=== PATIENT | female | born 1990 | race Caucasian/White ===

== ENCOUNTER → 2019-11-17 14:04 | Outpatient (BNVA) | payer BC, SELFPAY | PROVIDERS: Visit Provider Nurse Practitioner Family | DX: J11.1 Influenza due to unidentified influenza virus with other respiratory manifestations (principal) | CPT/HCPCS: 87400 ==

== ENCOUNTER 2020-03-02 16:11 | Outpatient (CLI) | payer BC, SELFPAY ==
[2020-03-02 16:32] LABS: Basophils # 0.1 10^3/uL (0.0-0.1); Basophils % 0.9 %; Eosinophils # 0.3 10^3/uL (0.0-0.8); Eosinophils % 3.9 %; Hematocrit 40.9 % (37.0-47.0); Hemoglobin 13.7 g/dL (11.5-15.3); Lymphocytes # 1.7 10^3/uL (0.8-4.8); Lymphocytes % 25.3 %; Mean Corpuscular HGB Conc 33.5 g/dL (30.0-36.0); Mean Corpuscular Hemoglobin 32.2 pg (28.0-34.0); Mean Platelet Volume 11.8 fL (7.4-10.4); Monocytes # 0.4 10^3/uL (0.2-0.9); Monocytes % 6.5 %; Neutrophils # 4.15 10^3/uL (1.8-7.7); Neutrophils % 63.1 %; Nucleated Red Blood Cells % 0 %; Platelet Count 174 10^3/cmm (130-400); Red Blood Count 4.26 10^6/uL (4.1-5.3); Red Cell Distribution Width 12.7 % (12.1-15.1); White Blood Count 6.6 10^3/uL (4.0-10.0)
[2020-03-02 17:13] LABS: Anion Gap 13.4 (5-19); Blood Urea Nitrogen 15 mg/dL (6-20); Calcium 9.3 mg/dL (8.5-10.5); Carbon Dioxide 25 mmol/L (22-29); Chloride 105 mmol/L (98-107); Chol HDL Ratio 4.02 mg/dL (0.0-4.40); Cholesterol 209 mg/dL (0-200); Glomerular Filtration Rate 119.9 mL/min (90-130); Glucose 96 mg/dL (65-115); HDL Cholesterol 52 mg/dL (60-100); LDL Cholesterol Calculated 139 mg/dL (50-129); LDL HDL Ratio 2.67 RATIO (0.00-3.22); Osmolality Calculated 284 mOsm/kg (285-295); Potassium 4.4 mmol/L (3.5-5.1); Sodium 139 mmol/L (136-145); Thyroid Stimulating Hormone 1.06 uIU/mL (0.27-4.20); Triglycerides 90 mg/dL (0-150)
== END 2020-03-02 16:12 | disposition home or self-care (01) ==
LOC: LAB 16:15
PROVIDERS: PCP Nurse Practitioner Family; Visit Provider Nurse Practitioner Family
DX: R53.83 Other fatigue (principal); Z13.220 Encounter for screening for lipoid disorders
CPT/HCPCS: 36415; 80048; 80061; 84443; 85025

== ENCOUNTER 2020-03-31 11:02 | Outpatient (CLI) | payer BC, SELFPAY ==
--- NOTE | 2020-03-31 11:16 | XRR_ITS ---
PROCEDURE INFORMATION: Exam: XR Chest, 2 Views Exam date and time: 03/31/2020 11:16 AM Age: 30 years old Clinical indication: Cough TECHNIQUE: Imaging protocol: XR of the chest Views: 2 views. COMPARISON: No relevant prior studies available. FINDINGS: Lungs: Hyperinflation and mild interstitial prominence, without acute infiltrate. Pleural space: No pleural effusion. Heart/Mediastinum: No cardiomegaly. Bones/joints: Unremarkable. XR/XR chest 2V* [id number] IMPRESSION: Hyperinflation and mild interstitial prominence, without acute infiltrate.
[2020-03-31 12:04] LABS: Basophils # 0.1 10^3/uL (0.0-0.1); Basophils % 1.4 %; Eosinophils # 0.2 10^3/uL (0.0-0.8); Eosinophils % 4.2 %; Hematocrit 43.5 % (37.0-47.0); Hemoglobin 14.3 g/dL (11.5-15.3); Lymphocytes # 1.9 10^3/uL (0.8-4.8); Mean Corpuscular HGB Conc 32.9 g/dL (30.0-36.0); Mean Corpuscular Hemoglobin 31.5 pg (28.0-34.0); Mean Corpuscular Volume 95.8 fL (81-99); Mean Platelet Volume 12.3 fL (7.4-10.4); Monocytes # 0.4 10^3/uL (0.2-0.9); Monocytes % 7.7 %; Neutrophils # 3.05 10^3/uL (1.8-7.7); Neutrophils % 53.4 %; Nucleated Red Blood Cells % 0 %; Platelet Count 168 10^3/cmm (130-400); Red Blood Count 4.54 10^6/uL (4.1-5.3); Red Cell Distribution Width 12.6 % (12.1-15.1); White Blood Count 5.7 10^3/uL (4.0-10.0)
== END 2020-03-31 11:03 | disposition home or self-care (01) ==
LOC: RAD 11:07
PROVIDERS: PCP Nurse Practitioner Family; Visit Provider Nurse Practitioner Family
DX: R05 Cough (principal); R53.83 Other fatigue
CPT/HCPCS: 71046; 85025

== ENCOUNTER → 2020-04-03 14:51 | Outpatient (BNVA) | payer BC, SELFPAY | PROVIDERS: PCP Nurse Practitioner Family; Visit Provider Nurse Practitioner Family | DX: Z11.59 Encounter for screening for other viral diseases (principal); J40 Bronchitis, not specified as acute or chronic | CPT/HCPCS: 87635 ==

== ENCOUNTER → 2021-07-27 08:34 | Outpatient (BNVA) | payer SELFPAY | PROVIDERS: PCP Nurse Practitioner Family; Visit Provider Nurse Practitioner Family | DX: E04.9 Nontoxic goiter, unspecified (principal); E78.5 Hyperlipidemia, unspecified; R53.83 Other fatigue | CPT/HCPCS: 80053; 80061; 84443 ==

== ENCOUNTER → 2021-12-07 11:21 | Outpatient (BNVA) | payer OTHER, SELFPAY | PROVIDERS: PCP Nurse Practitioner Family; Visit Provider Nurse Practitioner Family | DX: N39.0 Urinary tract infection, site not specified (principal); R31.9 Hematuria, unspecified | CPT/HCPCS: 81000; 87086 ==

== ENCOUNTER → 2022-01-28 11:33 | Outpatient (BNVA) | payer OTHER, SELFPAY | PROVIDERS: PCP Nurse Practitioner Family; Visit Provider Nurse Practitioner Family | DX: R30.0 Dysuria (principal); N39.0 Urinary tract infection, site not specified | CPT/HCPCS: 81000; 87086 ==

== ENCOUNTER → 2022-05-10 09:15 | Outpatient (BNVA) | payer OTHER, SELFPAY | PROVIDERS: PCP Nurse Practitioner Family; Visit Provider Nurse Practitioner Women's Health | DX: Z12.4 Encounter for screening for malignant neoplasm of cervix (principal) | CPT/HCPCS: 87624 ==

== ENCOUNTER → 2022-12-19 10:35 | Outpatient (BNVA) | payer MEDICAID, SELFPAY | PROVIDERS: PCP Nurse Practitioner Family; Visit Provider Nurse Practitioner Women's Health | DX: G43.009 Migraine without aura, not intractable, without status migrainosus (principal); B00.9 Herpesviral infection, unspecified; D69.6 Thrombocytopenia, unspecified; O99.119 Other diseases of the blood and blood-forming organs and certain disorders involving the immune mechanism complicating pregnancy, unspecified trimester; Z34.90 Encounter for supervision of normal pregnancy, unspecified, unspecified trimester | CPT/HCPCS: 81000; 85025 ==

== ENCOUNTER → 2022-12-26 08:42 | Outpatient (BNVA) | payer MEDICAID, SELFPAY | PROVIDERS: PCP Nurse Practitioner Family; Visit Provider Obstetrics & Gynecology | DX: Z34.00 Encounter for supervision of normal first pregnancy, unspecified trimester (principal) | CPT/HCPCS: 81000 ==

== ENCOUNTER → 2023-01-22 07:30 | Outpatient (BNVA) | payer MEDICAID, SELFPAY | PROVIDERS: PCP Nurse Practitioner Family; Visit Provider Obstetrics & Gynecology | DX: Z34.00 Encounter for supervision of normal first pregnancy, unspecified trimester (principal) | CPT/HCPCS: 81000 ==

== ENCOUNTER 2023-01-28 18:49 | Emergency (ER) | payer MEDICAID, SELFPAY ==
[2023-01-28 18:59] VITALS: BP 95/65; PULSE 94; RESP 14; TEMP 36.8; O2SAT 100; BMI 27.0
--- NOTE | 2023-01-28 19:08 | ED_ITS ---
HPI - Nausea/Vomiting/Diarrhea General: Chief complaint: Nausea/Vomiting/Diarrhea Stated complaint: 17 weeks , n/v/d, dizziness Time Seen by Provider: 01/28/23 19:04 Source: patient Mode of arrival: ambulatory Limitations: no limitations History of Present Illness: 32-year-old female who is currently 17 weeks states she had nausea vomiting diarrhea since this morning. States she had multiple episodes of vomiting states she feels dehydrated she had some lightheadedness she had some abdominal cramping along with some back pain. She denies any vaginal bleeding denies any fevers. Associated nausea: Yes Associated symtoms: Reports nausea; Denies chest pain, dysuria or headache(s) Review of Systems Const: Denies: fever(s), chills, body aches or change in appetite ENMT: Denies: throat pain Card: Denies: chest pain Resp: Denies: dyspnea GI: Reports: abdominal pain, nausea, vomiting and diarrhea : Denies: dysuria Musc: Reports: back pain; Denies: neck pain Skin/Breast: Denies: rash Neuro: Denies: headache(s) PFSH ED PFSH: Medical History Anxiety Herpes simplex oral only; has acyclovir Migraine without aura No pertinent past medical history neghx: htn,dm,thyroid,dvt/pe PCP: [facility] Surgical History History of ankle surgery Hx of appendectomy Family History Father Diabetes Hypertension Mother DJD (degenerative joint disease) Hypertension Grandfather Colon cancer Maternal--dx age 72 Hyperlipidemia Maternal and Paternal Hypertension Maternal and Paternal Grandmother Diabetes Maternal Hyperlipidemia Maternal and Paternal Hypertension Maternal and Paternal Denies family history of Ovarian cancer Breast cancer Uterine cancer Thyroid disease Stroke Social History Smoking and tobacco status: current every day smoker (currently vapes with nicotine) Substance/Drug Use: never Physical Exam Const: COMMON NORMALS: no acute distress, patient oriented x3 and healthy appearing HENMT: COMMON NORMALS: normocephalic and atraumatic HEAD & SCALP: normocephalic and atraumatic Neck/C-Spine: COMMON NORMALS: full ROM and supple Chest: COMMONS NORMALS: normal inspection of the chest and normal palpation of entire chest wall Resp: COMMON NORMALS: normal respiratory effort, No retractions, No use of accessory muscles and clear to auscultation bilaterally AUSCULTATION: clear to auscultation bilaterally Cardio: COMMON NORMALS: regular rate, regular rhythm and No murmurs present (Cardio) RATE: regular rate RHYTHM: regular rhythm GI: COMMON NORMALS: Normal to inspection, nondistended, normoactive bowel sounds present, Soft to palpation, non-tender and no masses PALPATION: Yes Soft to palpation Extremity: COMMON NORMALS: normal to inspection and full ROM Neuro: COMMON NORMALS: patient oriented x3, moves all extremities and no focal motor deficits Psych: COMMON NORMALS: mental status grossly normal, Normal thought process present and cooperative THOUGHT PROCESS: Normal thought process present Skin: COMMON NORMALS: no rashes or lesions noted and no wounds GENERAL SKIN EXAM: no rashes or lesions noted Course Vital Signs: Vital signs: Vital Signs Temperature 98.3 F 01/28/23 18:59 Pulse Rate 94 01/28/23 18:59 Respiratory Rate 16 01/28/23 19:40 Blood Pressure 102/67 01/28/23 19:40 Pulse Oximetry 96 01/28/23 19:40 Oxygen Delivery Me thod Room Air 01/28/23 18:59 MDM - Nausea/Vomiting/Diarrhea Medical Decision Making 32-year-old female presents with vomiting diarrhea she feels much improved here after IV fluids blood work here is normal she has no related complaints heart tones are 160. She feels improved after Reglan as well she is able to tolerate p.o. we will prescribe her Reglan for home she is to follow-up with OB return if worsening. Medical Records I reviewed the patient's medical records. Lab Data I reviewed the patient's lab results. 01/28/23 19:20 01/28/23 19:20 Laboratory Results WBC 5.7 10^3/uL (4.0-10.0) 01/28/23 19:20 RBC 3.47 10^6/uL (4.1-5.3) L 01/28/23 19:20 Hgb 11.4 g/dL (11.5-15.3) L 01/28/23 19:20 Hct 32.7 % (37.0-47.0) L 01/28/23 19:20 MCV 94.2 fl (81-99) 01/28/23 19:20 MCH 32.9 pg (28.0-34.0) 01/28/23 19:20 MCHC 34.9 g/dL (30.0-36.0) 01/28/23 19:20 RDW 13.0 % (12.1-15.1) 01/28/23 19:20 Plt Count 142 10^3/cmm (130-400) 01/28/23 19:20 MPV 11.3 fL (7.4-10.4) H 01/28/23 19:20 Neut % (Auto) 86.2 % 01/28/23 19:20 Lymph % (Auto) 8.1 % 01/28/23 19:20 [place] % (Auto) 4.9 % 01/28/23 19:20 Eos % (Auto) 0.2 % 01/28/23 19:20 Baso % (Auto) 0.2 % 01/28/23 19:20 Neut # (Auto) 4.90 10^3/uL (1.8-7.7) 01/28/23 19:20 Lymph # (Auto) 0.5 10^3/uL (0.8-4.8) L 01/28/23 19:20 [place] # (Auto) 0.3 10^3/uL (0.2-0.9) 01/28/23 19:20 Eos # (Auto) 0.0 10^3/uL (0.0-0.8) 01/28/23 19:20 Baso # (Auto) 0.0 10^3/uL (0.0-0.1) 01/28/23 19:20 Nucleated RBC % (auto) 0 % 01/28/23 19:20 Nucleated RBCs # 0.0 /100WBC 01/28/23 19:20 Sodium 133 mmol/L (136-145) L 01/28/23 19:20 Potassium 3.4 mmol/L (3.5-5.1) L 01/28/23 19:20 Chloride 103 mmol/L (98-107) 01/28/23 19:20 Carbon Dioxide 20 mmol/L (22-29) L 01/28/23 19:20 Anion Gap 13.4 (5-19) 01/28/23 19:20 BUN 8 mg/dL (6-20) 01/28/23 19:20 Creatinine 0.5 mg/dL (0.5-0.9) 01/28/23 19:20 GFR Calculation 144.9 mL/min (90-130) H 01/28/23 19:20 Glucose 80 mg/dL (65-115) 01/28/23 19:20 Calculated Osmolality 273 mOsm/kg (285-295) L 01/28/23 19:20 Calcium 8.4 mg/dL (8.5-10.5) L 01/28/23 19:20 Total Bilirubin 0.2 mg/dL (0.15-1.2) 01/28/23 19:20 AST 27 U/L (0-32) 01/28/23 19:20 ALT 18 U/L (0-33) 01/28/23 19:20 Alkaline Phosphatase 53 U/L (35-105) 01/28/23 19:20 Total Protein 6.1 g/dL (6.6-8.7) L 01/28/23 19:20 Albumin 3.8 g/dL (3.5-5.2) 01/28/23 19:20 Globulin 2.3 g/dL (1.3-4.6) 01/28/23 19:20 Lipase 14 U/L (13-60) 01/28/23 19:20 Urine Color Yellow (Yellow) 01/28/23 20:00 Urine Appearance Cloudy (CLEAR) A 01/28/23 20:00 Urine pH 5 (5-7) 01/28/23 20:00 Ur Specific [place] 1.030 (1.005-1.030) 01/28/23 20:00 Urine Protein Trace (Negative) 01/28/23 20:00 Urine Glucose (UA) Norm (Normal) 01/28/23 20:00 Urine Ketones 2+ (Negative) H 01/28/23 20:00 Urine Blood Trace (Negative) H 01/28/23 20:00 Urine Nitrate Negative (Negative) 01/28/23 20:00 Urine Bilirubin 1+ (Negative) H 01/28/23 20:00 Urine Urobilinogen 1 mg/dL (Negative) H 01/28/23 20:00 Ur Leukocyte Esterase Trace (Negative) H 01/28/23 20:00 Urine RBC 0-4 /hpf (0-2) H 01/28/23 20:00 Urine WBC 0-4 /hpf (0-5) H 01/28/23 20:00 Ur Squamous Epith Cells 25-40 /hpf (0-5) H 01/28/23 20:00 Calcium Oxalate Crystal 5-10 /hpf H 01/28/23 20:00 Amorphous Sediment Not Reportable 01/28/23 20:00 Urine Bacteria 2+ /hpf (NONE) H 01/28/23 20:00 Urine Mucus 3+ /hpf 01/28/23 20:00 Discharge Plan Discharge Patient Disposition: Home Clinical Impression: Vomiting affecting , Diarrhea Condition: Stable Prescriptions: New Reglan 10 mg tablet 10 mg PO Q6H PRN (Reason: nausea and vomiting) Qty: 20 0RF No Action Gummies 400 mcg-35 mg- 25 mg-5 mg tablet,chewable 1 tab PO DAILY promethazine 12.5 mg tablet 12.5 mg PO Q6H PRN (Reason: nausea and vomiting) Qty: 30 0RF valacyclovir [Valtrex] 500 mg tablet 500 mg PO BID Qty: 60 12RF ferrous sulfate 325 mg (65 mg iron) tablet 325 mg PO DAILY Discharge Orders: Discharge ED (Routine); Ordered 01/28/23 Ordered By: Abdias Swanson Referrals: Ivory Brasher NUCLEAR STATION OPERATOR [Primary Care Provider] - 1-3 days Discharge Diet: Advance as tolerated Discharge Activity: Resume usual activity Patient Instructions: Nausea and Vomiting in (ED) Coding Level of Care Code ED Tire Mechanic for Beatrice Hedrick
[2023-01-28] MEDS: diphenhydrAMINE 50 mg/mL SDV 1mL IVP (19:21)
[2023-01-28] MEDS: metoclopramide 5 mg/mL SDV 2 mL 10 MG IVP (19:22)
[2023-01-28] MEDS: sodium chloride 0.9% 1,000 ML 999 ML IV ×2 (19:22→19:56)
[2023-01-28 19:28] LABS: Basophils % 0.2 %; Eosinophils % 0.2 %; Hematocrit 32.7 % (37.0-47.0); Hemoglobin 11.4 g/dL (11.5-15.3); Lymphocytes # 0.5 10^3/uL (0.8-4.8); Lymphocytes % 8.1 %; Mean Corpuscular HGB Conc 34.9 g/dL (30.0-36.0); Mean Corpuscular Hemoglobin 32.9 pg (28.0-34.0); Mean Corpuscular Volume 94.2 fl (81-99); Mean Platelet Volume 11.3 fL (7.4-10.4); Monocytes # 0.3 10^3/uL (0.2-0.9); Monocytes % 4.9 %; Neutrophils % 86.2 %; Nucleated Red Blood Cells % 0 %; Platelet Count 142 10^3/cmm (130-400); Red Blood Count 3.47 10^6/uL (4.1-5.3); White Blood Count 5.7 10^3/uL (4.0-10.0)
[2023-01-28 19:40] VITALS: BP 102/67; RESP 16; O2SAT 96
[2023-01-28 19:47] LABS: Alanine Aminotransferase 18 U/L (0-33); Albumin Level 3.8 g/dL (3.5-5.2); Alkaline Phosphatase 53 U/L (35-105); Anion Gap 13.4 (5-19); Aspartate Amino Transferase 27 U/L (0-32); Blood Urea Nitrogen 8 mg/dL (6-20); Calcium 8.4 mg/dL (8.5-10.5); Carbon Dioxide 20 mmol/L (22-29); Chloride 103 mmol/L (98-107); Globulin 2.3 g/dL (1.3-4.6); Glomerular Filtration Rate 144.9 mL/min (90-130); Glucose 80 mg/dL (65-115); Lipase 14 U/L (13-60); Osmolality Calculated 273 mOsm/kg (285-295); Potassium 3.4 mmol/L (3.5-5.1); Sodium 133 mmol/L (136-145); Total Bilirubin 0.2 mg/dL (0.15-1.2); Total Protein 6.1 g/dL (6.6-8.7)
[2023-01-28 20:17] LABS: Protein Urine Trace (Negative); Urine Appearance Cloudy (CLEAR); Urine Color Yellow (Yellow); pH Urine 5 (5-7)
[2023-01-28 20:18] LABS: Add Urine Microscopic? YES; Bacteria Urine 2+ /hpf; Bilirubin Urine 1+ (Negative); Blood Urine Trace (Negative); Glucose Urine UA Norm (Normal); Ketones Urine 2+ (Negative); Leukocyte Esterase Urine Trace (Negative); Mucus Urine 3+ /hpf; Nitrate Urine Negative (Negative); RBC Urine 0-4 /hpf (0-2); Squamous Epithelial Cell Urine 25-40 /hpf (0-5); Urobilinogen Urine 1 mg/dL (Negative); WBC Urine 0-4 /hpf (0-5)
[2023-01-28 20:19] LABS: Add Urine Culture? No
[2023-01-28 20:57] VITALS: BP 102/67; PULSE 94; RESP 16; TEMP 36.8; O2SAT 96
== END 2023-01-28 20:58 | disposition home or self-care (01) ==
PROVIDERS: Emergency Provider Emergency Medicine; PCP Nurse Practitioner Family
DX: O21.0 Mild hyperemesis gravidarum (principal); Z3A.17 17 weeks gestation of pregnancy; O26.892 Other specified pregnancy related conditions, second trimester; R19.7 Diarrhea, unspecified; O99.332 Smoking (tobacco) complicating pregnancy, second trimester; F17.290 Nicotine dependence, other tobacco product, uncomplicated
CPT/HCPCS: 80053; 81001; 83690; 85025; 96374; 96375; 99284; J1200; J2765; J7030

== ENCOUNTER → 2023-02-20 09:12 | Outpatient (BNVA) | payer MEDICAID, SELFPAY | PROVIDERS: PCP Nurse Practitioner Family; Visit Provider Obstetrics & Gynecology | DX: Z34.92 Encounter for supervision of normal pregnancy, unspecified, second trimester (principal); Z3A.14 14 weeks gestation of pregnancy | CPT/HCPCS: 76805 ==

== ENCOUNTER → 2023-02-26 07:28 | Outpatient (BNVA) | payer MEDICAID, SELFPAY | PROVIDERS: PCP Nurse Practitioner Family; Visit Provider Obstetrics & Gynecology | DX: Z34.00 Encounter for supervision of normal first pregnancy, unspecified trimester (principal) | CPT/HCPCS: 81000 ==

== ENCOUNTER → 2023-03-19 08:19 | Outpatient (BNVA) | payer MEDICAID, SELFPAY | PROVIDERS: PCP Nurse Practitioner Family; Visit Provider Obstetrics & Gynecology | DX: Z34.00 Encounter for supervision of normal first pregnancy, unspecified trimester (principal) | CPT/HCPCS: 81000 ==

== ENCOUNTER → 2023-04-16 09:00 | Outpatient (BNVA) | payer MEDICAID, SELFPAY | PROVIDERS: PCP Nurse Practitioner Family; Visit Provider Obstetrics & Gynecology | DX: Z34.00 Encounter for supervision of normal first pregnancy, unspecified trimester (principal) | CPT/HCPCS: 81000; 82950; 85025 ==

== ENCOUNTER → 2023-04-30 08:54 | Outpatient (BNVA) | payer MEDICAID, SELFPAY | PROVIDERS: PCP Nurse Practitioner Family; Visit Provider Obstetrics & Gynecology | DX: Z34.03 Encounter for supervision of normal first pregnancy, third trimester (principal); Z3A.30 30 weeks gestation of pregnancy | CPT/HCPCS: 76816; 81000 ==

== ENCOUNTER → 2023-05-14 08:11 | Outpatient (BNVA) | payer MEDICAID, SELFPAY | PROVIDERS: PCP Nurse Practitioner Family; Visit Provider Obstetrics & Gynecology | DX: Z34.00 Encounter for supervision of normal first pregnancy, unspecified trimester (principal) | CPT/HCPCS: 81000 ==

== ENCOUNTER 2023-05-21 09:40 | Outpatient (CLI) | payer MEDICAID, SELFPAY ==
[2023-05-21] VITALS (8 sets, daily range): BP systolic 105–116; BP diastolic 61–69; PULSE 81–106; RESP 16; TEMP 36.2; BMI 33.4
== END 2023-05-21 11:30 | disposition home or self-care (01) ==
LOC: OPOB 09:45 → OBGYN 09:48
PROVIDERS: PCP Nurse Practitioner Family; Visit Provider Obstetrics & Gynecology
DX: O36.8190 Decreased fetal movements, unspecified trimester, not applicable or unspecified (principal); Z3A.00 Weeks of gestation of pregnancy not specified
CPT/HCPCS: 59025; 99211

== ENCOUNTER → 2023-05-28 08:17 | Outpatient (BNVA) | payer MEDICAID, SELFPAY | PROVIDERS: PCP Nurse Practitioner Family; Visit Provider Obstetrics & Gynecology | DX: Z34.00 Encounter for supervision of normal first pregnancy, unspecified trimester (principal) | CPT/HCPCS: 81000 ==

== ENCOUNTER 2023-06-06 20:50 | Outpatient (CLI) | payer MEDICAID, SELFPAY ==
[2023-06-06 20:58] VITALS: BP 119/71; PULSE 78
[2023-06-06 21:00] VITALS: BMI 35.3
[2023-06-06 21:21] VITALS: BP 111/77; PULSE 81
[2023-06-06 21:39] VITALS: BP 109/64; PULSE 86
[2023-06-06 21:59] VITALS: BP 107/72; PULSE 84
[2023-06-06 22:08] LABS: Bilirubin Urine Neg (Negative); Blood Urine Neg (Negative); Glucose Urine UA Norm (Normal); Ketones Urine 1+ (Negative); Leukocyte Esterase Urine Negative (Negative); Nitrate Urine Negative (Negative); Protein Urine Trace (Negative); RBC Urine RARE /hpf (0-2); Specific Gravity, Urine 1.025 (1.005-1.030); Urine Appearance Clear (CLEAR); Urine Color Yellow (Yellow); Urobilinogen Urine Neg (Negative); pH Urine 5 (5-7)
[2023-06-06 22:09] LABS: Add Urine Culture? No; Bacteria Urine TRACE /hpf; Mucus Urine 1+ /hpf
[2023-06-06 22:19] VITALS: BP 115/74; PULSE 75; RESP 16
== END 2023-06-06 22:24 | disposition home or self-care (01) ==
LOC: OPOB 20:50 → OBGYN 20:50
PROVIDERS: PCP Nurse Practitioner Family; Visit Provider Obstetrics & Gynecology
DX: O26.899 Other specified pregnancy related conditions, unspecified trimester (principal); Z3A.00 Weeks of gestation of pregnancy not specified
CPT/HCPCS: 59025; 81001; 99211

== ENCOUNTER 2023-06-08 21:09 | Outpatient (CLI) | payer MEDICAID, SELFPAY ==
[2023-06-08 21:27] VITALS: RESP 16
[2023-06-08 21:35] LABS: Nitrazine Paper, PH Negative
[2023-06-08 21:37] VITALS: BP 107/69; PULSE 87
[2023-06-08 21:39] LABS: Actim Prom Negative
[2023-06-08 21:52] VITALS: BMI 35.3
[2023-06-08 21:53] VITALS: BP 105/69; PULSE 85
== END 2023-06-08 22:15 | disposition home or self-care (01) ==
LOC: OPOB 21:09 → OBGYN 21:24
PROVIDERS: PCP Nurse Practitioner Family; Visit Provider Obstetrics & Gynecology
DX: O26.899 Other specified pregnancy related conditions, unspecified trimester (principal); Z3A.00 Weeks of gestation of pregnancy not specified; R10.9 Unspecified abdominal pain; N89.8 Other specified noninflammatory disorders of vagina
CPT/HCPCS: 59025; 83986; 84112; 99211

== ENCOUNTER → 2023-06-11 09:00 | Outpatient (BNVA) | payer MEDICAID, SELFPAY | PROVIDERS: PCP Nurse Practitioner Family; Visit Provider Obstetrics & Gynecology | DX: Z34.00 Encounter for supervision of normal first pregnancy, unspecified trimester (principal) | CPT/HCPCS: 81000; 87081 ==

== ENCOUNTER → 2023-06-18 08:11 | Outpatient (BNVA) | payer MEDICAID, SELFPAY | PROVIDERS: PCP Nurse Practitioner Family; Visit Provider Nurse Practitioner Women's Health | DX: O99.119 Other diseases of the blood and blood-forming organs and certain disorders involving the immune mechanism complicating pregnancy, unspecified trimester; B00.9 Herpesviral infection, unspecified; D69.6 Thrombocytopenia, unspecified | CPT/HCPCS: 81000 ==

== ENCOUNTER 2023-06-20 19:14 | Outpatient (CLI) | payer MEDICAID, SELFPAY ==
[2023-06-20 19:15] VITALS: RESP 16; TEMP 35.9; BMI 36.1
[2023-06-20 19:21] VITALS: BP 125/75; PULSE 100
[2023-06-20 19:40] VITALS: BP 120/72; PULSE 94
[2023-06-20 19:54] VITALS: BP 120/72; PULSE 94; RESP 16
== END 2023-06-20 20:00 | disposition home or self-care (01) ==
LOC: OPOB 19:15 → OBGYN 19:15
PROVIDERS: PCP Nurse Practitioner Family; Visit Provider Obstetrics & Gynecology
DX: O26.899 Other specified pregnancy related conditions, unspecified trimester (principal); Z3A.00 Weeks of gestation of pregnancy not specified; R60.0 Localized edema; R10.9 Unspecified abdominal pain
CPT/HCPCS: 59025; 99211

== ENCOUNTER → 2023-06-25 08:05 | Outpatient (BNVA) | payer MEDICAID, SELFPAY | PROVIDERS: PCP Nurse Practitioner Family; Visit Provider Obstetrics & Gynecology | DX: Z34.00 Encounter for supervision of normal first pregnancy, unspecified trimester (principal); Z3A.00 Weeks of gestation of pregnancy not specified | CPT/HCPCS: 81000 ==

== ENCOUNTER 2023-06-28 12:10 | Outpatient (CLI) | payer MEDICAID, SELFPAY ==
[2023-06-28 12:10] VITALS: BMI 37.0
[2023-06-28 12:36] VITALS: BP 125/81; PULSE 86
[2023-06-28 12:56] VITALS: BP 112/73; PULSE 106
[2023-06-28 13:16] VITALS: BP 116/75; PULSE 90
[2023-06-28 13:48] LABS: Nitrazine Paper, PH Negative
== END 2023-06-28 13:36 | disposition home or self-care (01) ==
LOC: OPOB 12:27 → OBGYN 12:29
PROVIDERS: PCP Nurse Practitioner Family; Visit Provider Obstetrics & Gynecology
DX: O26.899 Other specified pregnancy related conditions, unspecified trimester (principal); Z3A.00 Weeks of gestation of pregnancy not specified; N89.8 Other specified noninflammatory disorders of vagina
CPT/HCPCS: 59025; 83986; 99211

== ENCOUNTER → 2023-07-02 08:25 | Outpatient (BNVA) | payer MEDICAID, SELFPAY | PROVIDERS: PCP Nurse Practitioner Family; Visit Provider Obstetrics & Gynecology | DX: Z34.00 Encounter for supervision of normal first pregnancy, unspecified trimester (principal); Z3A.00 Weeks of gestation of pregnancy not specified | CPT/HCPCS: 81000 ==

== ENCOUNTER 2023-07-07 17:06 | Outpatient (CLI) | payer MEDICAID, SELFPAY ==
[2023-07-07] VITALS (7 sets, daily range): BP systolic 113–133; BP diastolic 71–84; PULSE 88–105; RESP 16; TEMP 36.2–36.7; BMI 37.6
[2023-07-07 18:47] LABS: Nitrazine Paper, PH Negative
== END 2023-07-07 20:02 | disposition home or self-care (01) ==
LOC: OPOB 17:11 → OBGYN 17:13
PROVIDERS: PCP Nurse Practitioner Family; Visit Provider Obstetrics & Gynecology
DX: O26.899 Other specified pregnancy related conditions, unspecified trimester (principal); Z3A.00 Weeks of gestation of pregnancy not specified; N89.8 Other specified noninflammatory disorders of vagina
CPT/HCPCS: 59025; 83986; 99211

== ENCOUNTER 2023-07-09 03:00 | Inpatient (IN) | payer MEDICAID, SELFPAY ==
[2023-07-09] VITALS (101 sets, daily range): BP systolic 94–162; BP diastolic 54–88; PULSE 46–179; RESP 15–17; TEMP 36.2–37.2; O2SAT 97–100; BMI 37.6
[2023-07-09 03:19] LABS: Basophils % 0.3 %; Eosinophils % 0.1 %; Hematocrit 35.2 % (36-47); Lymphocytes # 0.9 10^3/uL (0.8-4.8); Lymphocytes % 8.8 %; Mean Corpuscular HGB Conc 33.8 g/dL (30-55); Mean Corpuscular Hemoglobin 31.6 pg (27-33); Mean Corpuscular Volume 93.6 fl (85-98); Mean Platelet Volume 12.4 fL (7.4-10.4); Monocytes # 0.6 10^3/uL (0.2-0.9); Monocytes % 6.1 %; Neutrophils # 8.71 10^3/uL (1.8-7.7); Nucleated Red Blood Cells % 0 %; Platelet Count 180 10^3/cmm (157-399); Red Blood Count 3.76 10^6/uL (3.85-5.65); Red Cell Distribution Width 12.1 % (12.1-15.1); White Blood Count 10.36 10^3/uL (3.29-11.43)
[2023-07-09] MEDS: lactated ringers 1,000 ML 999 ML IV ×2 (03:35→04:34)
[2023-07-09] MEDS: alum-mag-hydroxide-sime 30 mL UDC PO (03:49)
--- NOTE | 2023-07-09 03:54 | PM.OBGYHP ---
Providers/Chief Complaint Admitting Physician: Gilmar Abraham MD Primary PLATE AND WELD INSPECTOR: Gilmar Abraham MD Primary Care Provider: FEDERICO Rose Chief Complaint: Contractions HPI PLATE AND WELD INSPECTOR History of Present Illness 32 y.o. G1 LMP September 28, 2022; EDC July 05, 2023 At 40 w 4 d No complications Presents to L&D c/o painful uterine contractions No bleeding or fluid leakage + active movements Present Details : 1 Para: 0 Labs Rubella: Immune RPR: Negative GBS: Negative Medications/Allergies Home Medications Medication Instructions Recorded Confirmed Last Taken Type valacyclovir 500 mg tablet 500 mg PO BID #60 tabs 12/19/22 07/02/23 06/27/23 21:30 Rx (Valtrex) prenat.vits,jimbo,[id number] 1 tab PO DAILY 03/19/23 07/02/23 06/28/23 08:30 History diphenhydramine HCl 50 mg capsule 50 mg PO PRN PRN Sleep 06/28/23 07/02/23 06/27/23 21:30 History Allergies Allergy/AdvReac Type Severity Reaction Status Date / Time iodine Allergy Severe ALGY-Anaphy Verified 07/09/23 07:04 laxis shellfish derived Allergy Severe ALGY-Anaphy Verified 07/09/23 07:04 laxis PFSH PLATE AND WELD INSPECTOR PFSH: Medical History Anxiety Herpes simplex oral only; has acyclovir Migraine without aura No pertinent past medical history neghx: htn,dm,thyroid,dvt/pe PCP: Rosangela Brasher Surgical History History of ankle surgery Hx of appendectomy Family History Father Diabetes Hypertension Mother DJD (degenerative joint disease) Hypertension Grandfather Colon cancer Maternal--dx age 72 Hyperlipidemia Maternal and Paternal Hypertension Maternal and Paternal Grandmother Diabetes Maternal Hyperlipidemia Maternal and Paternal Hypertension Maternal and Paternal Denies family history of Ovarian cancer Breast cancer Uterine cancer Thyroid disease Stroke Social History Smoking and tobacco/nicotine status: current every day tobacco/nicotine user Substance/Drug Use: never History History History 1 Term 0 Miscarriages/Ectopic Living Children Care EVAN Calculator Estimated Delivery Date Method Current WG Current Estimate 07/05/23 LMP (Certain) 40w 5d Specific Issues/Plans Nicotine use; counseled Marijuana use--present on initial drug screen; reports cessation at confirmation of Oral HSV--started valtrex suppression Migraines Vitals/I&O/Wt Last Vital Signs Temp 98.9 F 07/09/23 17:00 Pulse 110 H 07/10/23 01:08 Resp 17 07/09/23 17:00 BP 136/69 07/10/23 01:08 Pulse Ox 98 07/09/23 06:25 O2 Del Method Room Air 07/09/23 03:02 07/09/23 07/09/23 07/10/23 14:59 22:59 06:59 Intake Total 1070.00 / 1070.00 524.250 / 1594.250 Output Total 900 / 900 Balance 1070.00 / 1070.00 -375.750 / 694.250 Weight last 48 hrs Weight 180 lb Physical Exam Narrative: Weight 180 lbs; 4?9? VS normal Awake, alert Lungs: clear Cor: RRR Abd: soft FH 37 cm Cx: 2 cm / -2 station Urinary Catheter Management: Gunderson: Cath Placed During This Visit: yes, but has since been removed by the nurse Reason for Continuing Indwelling Catheter: Decision to DC Catheter Urinary Catheter Date of Insertion: 07/09/23 Urinary Catheter Time of Insertion: 06:40 Date Urinary Catheter Removed: 07/09/23 Time Urinary Catheter Discontinued: 15:40 Data 07/10/23 03:20 Results Labs OB ([facility]): Obstetrics US 04/30/23 Blood Type O Positive 07/09/23 Antibody Screen Negative 07/09/23 Hct 30.7 % (36-47) L 07/10/23 Hgb 10.10 g/dL (11.27-16.99) L 07/10/23 Rho(D) Type Rh positive 07/09/23 Plt Count 83 10^3/cmm (157-399) L 07/10/23 TSH 2.00 uIU/mL (0.27-4.20) 07/27/21 Cystic Fibrosis Screen Negative 12/19/22 Gest Glucose Tolerance 133 mg/dL (70-139) 04/16/23 Urine Opiates Screen Negative ng/mL (Negative) 07/09/23 Ur Barbiturates Screen Negative ng/mL (Negative) 07/09/23 Ur Phencyclidine Scrn Negative ng/mL (Negative) 07/09/23 Ur Amphetamines Screen Negative ng/mL (Negative) 07/09/23 U Benzodiazepines Scrn Negative ng/mL (Negative) 07/09/23 Urine Cocaine Screen Negative ng/mL (Negative) 07/09/23 U Marijuana (THC) Screen Negative ng/mL (Negative) 07/09/23 Micro Urine Specimen 01/28/22 Pap Smear Interpret See note 05/10/22 A&P Assessment and plan (1) Term : 40 w 4 d (2) Active labor: painful uterine contractions admit expectant management Attestations Medical Necessity Statement*: patient at 40 w 4 d, with painful uterine contractions Coding Level of Care Code Acute Code for Chg Fwd Diagnoses Term Z34.90 Active labor Time Spent (min) 30
[2023-07-09 04:14] LABS: Amphetamines Screen Urine Negative (Negative); Barbiturates Screen Urine Negative (Negative); Benzodiazepines Screen Urine Negative (Negative); Cocaine Screen Urine Negative (Negative); Opiate Screen Urine Negative (Negative); PCP Screen Urine Negative (Negative); THC Screen Urine Negative (Negative)
[2023-07-09] MEDS: ondansetron 2 mg/ML SDV 2 mL 4 MG IVP (04:33)
--- NOTE | 2023-07-09 05:30 | ANES.PREANE2 ---
Pre-Anesthetic Assessment Height/Weight: Height 1.47 m Weight 81.647 kg Temp Pulse Resp BP Pulse Ox O2 Del Method 97.1 F L 90 15 148/81 100 Room Air 07/09/23 02:56 07/09/23 05:25 07/09/23 02:58 07/09/23 05:22 07/09/23 05:25 07/09/23 03:02 Preop Diagnosis: Labor pain WESTLEY Was Beta Naz taken within 24 hours: N/A Was Clonidine taken within 24 hours: N/A Social Tobacco and No alcohol Exam alert, oriented x 3, clear to auscultation bilaterally and regular rate & rhythm Airway Submandibular: within normal limits Cervical ROM: within normal limits Dentition: full Comments: Comments: upper plate History/ROS No significant history except as noted and No significant complaints Pulmonary None reported CV/HEM None reported None reported Hepatic None reported GI Gastroesophageal Reflux Disease Metabolic None reported Musc/skel None reported Neuropsych None reported Anesthetic Plan ASA status: 2 Anesthesia: Anesthesia Evaluation and Regional (specify below) Risk of > 500 ml blood loss (7ml/kg in children): No Medications/Allergies Home Medications Medication Instructions Recorded Confirmed Last Taken Type valacyclovir 500 mg tablet 500 mg PO BID #60 tabs 12/19/22 07/02/23 06/27/23 21:30 Rx (Valtrex) prenat.vits,jimbo,hqn-dcan-lceqo 1 tab PO DAILY 03/19/23 07/02/23 06/28/23 08:30 History diphenhydramine HCl 50 mg capsule 50 mg PO PRN PRN Sleep 06/28/23 07/02/23 06/27/23 21:30 History Allergies Allergy/AdvReac Type Severity Reaction Status Date / Time iodine Allergy ALGY-Anaphy Verified 07/02/23 07:33 laxis shellfish derived Allergy ALGY-Anaphy Verified 07/02/23 07:33 laxis Current Medications Generic Name Dose Route Start Last Admin Trade Name Freq PRN Reason Stop Dose Admin Al Hydrox/Mg Hydrox/Simethicone 30 ml 07/09/23 02:58 07/09/23 03:49 Olez-Etz-Sqkvjrdqn-Marisela 30 Ml Udc PO 30 ml Q4H PRN Administration Indigestion (Use 2nd) Lactated Ringer's 1,000 mls @ 999 mls/hr 07/09/23 03:34 07/09/23 04:34 Lactated Ringers IV 999 mls/hr .Q1H1M PRN Administration See label comments Ondansetron HCl 4 mg 07/09/23 02:58 07/09/23 04:33 Ondansetron 2 Mg/Ml Sdv 2 Ml IVP 4 mg Q4H PRN Administration NAUSEA AND VOMITING PFSH Anesthesia Medical History Anxiety Herpes simplex oral only; has acyclovir Migraine without aura No pertinent past medical history neghx: htn,dm,thyroid,dvt/pe PCP: Rosangela Brasher Surgical History History of ankle surgery Hx of appendectomy Family History Father Diabetes Hypertension Mother DJD (degenerative joint disease) Hypertension Grandfather Colon cancer Maternal--dx age 72 Hyperlipidemia Maternal and Paternal Hypertension Maternal and Paternal Grandmother Diabetes Maternal Hyperlipidemia Maternal and Paternal Hypertension Maternal and Paternal Denies family history of Ovarian cancer Breast cancer Uterine cancer Thyroid disease Stroke Social History Smoking and tobacco/nicotine status: current every day tobacco/nicotine user Substance/Drug Use: never Female Reproductive History : 1 Data Anesthesia 07/09/23 02:40 Short CBC 07/09/23 Range/Units 02:40 WBC 10.36 (3.29-11.43) 10^3/uL Hgb 11.90 (11.27-16.99) g/dL Hct 35.2 L (36-47) % MCV 93.6 (85-98) fl Plt Count 180 (157-399) 10^3/cmm Neut % (Auto) 84.0 % Neut # (Auto) 8.71 H (1.8-7.7) 10^3/uL Blood Bank 07/09/23 02:40 Blood Type O Positive Rho(D) Type Rh positive Antibody Screen Negative Cardiac Studies: No Data to Display
--- NOTE | 2023-07-09 05:32 | ANES.PROC ---
Anesthesia Procedures Procedure/Date: 07/09/23 Epidural: Time Out Performed: Yes Consents Signed: Procedure Consent Consent: requested by attending/covering physician, from patient, risks and benefits reviewed and patient agrees to proceed Lumbar Level: L2-L3 Epidural position: sitting Epidural procedure: sterile prep of area, 1% lidocaine to numb the area, 18 g needle, neg for paresthesia, 1.5% xylocaine 1:200k epi (3cc), 0.2% Ropivacaine bolus ml (3cc and Fentanyl 100 mcg), placed PCEA, no systemic response, sterile dressing applied, L.U.D. no apparent complications and 0.2% Ropiavacaine @ mls/hr (10cc/hour)
[2023-07-09] MEDS: ROPivacaine syringe 100 MG/50 ML SYRINGE 10 MG EPIDURAL ×3 (05:34→14:24)
[2023-07-09] MEDS: dextrose 5%-lactated ringers 1,000 ML 125 ML IV ×2 (05:39→13:18)
--- NOTE | 2023-07-09 08:01 | PC.NURSE ---
This technical writer and editor went to place verdugo catheter at approximately 0630. Pt stated she was allergic to iodine. This technical writer and editor got baby soap and warm water and performed pericare in replace of the iodine swabs with clean gloves on. Hand hygeine was then performed and followed with doning sterile gloves to perform verdugo catheter insertion. 10mL of water was inserted into balloon, clear, dark yellow urine returned. Pt tolerated procedure well.
--- NOTE | 2023-07-09 09:05 | P.PN_ITS ---
CHILD PSYCHIATRIST Subjective Subjective: Interval history: July 09, 2023, 0905 Fetus reassuring Cervix: 4 cm / 100 / -2 / posterior / BBOW AROM, clear fluid Start Pitocin Labor: Station: +2 Amniotic Membrane Status: Ruptured Monitor Mode: Palpation Contraction Pattern: Regular Status: Category II Vitals/I&O/Wt Last Vital Signs Temp 98.9 F 07/09/23 17:00 Pulse 110 H 07/10/23 01:08 Resp 17 07/09/23 17:00 BP 136/69 07/10/23 01:08 Pulse Ox 98 07/09/23 06:25 O2 Del Method Room Air 07/09/23 03:02 07/09/23 07/09/23 07/10/23 14:59 22:59 06:59 Intake Total 1070.00 / 1070.00 524.250 / 1594.250 Output Total 900 / 900 Balance 1070.00 / 1070.00 -375.750 / 694.250 Weight last 48 hrs Weight 180 lb Physical Exam Urinary Catheter Management: Gunderson: Cath Placed During This Visit: yes, but has since been removed by the nurse Reason for Continuing Indwelling Catheter: Decision to DC Catheter Urinary Catheter Date of Insertion: 07/09/23 Urinary Catheter Time of Insertion: 06:40 Date Urinary Catheter Removed: 07/09/23 Time Urinary Catheter Discontinued: 15:40 Data 07/10/23 03:20 A&P Assessment and plan (1) Term : (2) Active labor: Attestations Medical Necessity Statement*: patient at 40 w 4 d, with active labor Coding Level of Care Code Acute Code for Chg Fwd Diagnoses Term Z34.90 Active labor Time Spent (min) 20
[2023-07-09] MEDS: oxytocin 30 UNIT/500 ML BAG IV (09:50)
[2023-07-09] MEDS: calcium carbonate 500 mg Chew Tablet 1000 MG PO (13:18)
--- NOTE | 2023-07-09 15:10 | PM.DELIVERY ---
Delivery Note: Date of delivery: July 09, 2023 Pre-delivery diagnoses: 40 w 4 d active labor Post-delivery diagnoses: vaginal delivery second-degree perineal laceration Procedure: vaginal delivery second-degree perineal laceration, repaired Op report anesthesia: Epidural Delivering Physician: Glimar Abraham MD Estimated blood loss (mL): 300 Findings: , vigorous female infant Normal placenta and cord Second-degree perineal laceration repaired EBL: 300 cc No complications Pre-Delivery Course: normal progression of labor Delivery: vaginal Post-Delivery Status: good History History History 1 Term 0 Miscarriages/Ectopic Living Children A&P Assessment and plan (1) Vaginal delivery: (2) Second degree perineal laceration: repaired Coding Level of Care Code Acute Code for Chg Fwd Diagnoses Vaginal delivery O80 Second degree perineal laceration O70.1 Time Spent (min) 60
--- NOTE | 2023-07-09 15:10 | P.PN_ITS ---
MECHANICAL ENERGY ENGINEER Subjective Subjective: Interval history: July 09, 2023, 1510 DELIVERY NOTE , vigorous female Normal placenta and cord Second-degree perineal laceration repaired EBL: 300 cc No complications Labor: Station: +2 Amniotic Membrane Status: Ruptured Monitor Mode : Palpation Contraction Pattern: Regular Status: Category II Vitals/I&O/Wt Last Vital Signs Temp 98.9 F 07/09/23 17:00 Pulse 110 H 07/10/23 01:08 Resp 17 07/09/23 17:00 BP 136/69 07/10/23 01:08 Pulse Ox 98 07/09/23 06:25 O2 Del Method Room Air 07/09/23 03:02 07/09/23 07/09/23 07/10/23 14:59 22:59 06:59 Intake Total 1070.00 / 1070.00 524.250 / 1594.250 Output Total 900 / 900 Balance 1070.00 / 1070.00 -375.750 / 694.250 Weight last 48 hrs Weight 180 lb Physical Exam Urinary Catheter Management: Gunderson: Cath Placed During This Visit: yes, but has since been removed by the nurse Reason for Continuing Indwelling Catheter: Decision to DC Catheter Urinary Catheter Date of Insertion: 07/09/23 Urinary Catheter Time of Insertion: 06:40 Date Urinary Catheter Removed: 07/09/23 Time Urinary Catheter Discontinued: 15:40 Data 07/10/23 03:20 A&P Assessment and plan (1) Vaginal delivery: (2) Second degree perineal laceration: repaired Attestations Medical Necessity Statement*: patient at 40 w 4 d, vaginal delivery Coding Level of Care Code Acute Code for Chg Fwd Diagnoses Vaginal delivery O80 Second degree perineal laceration O70.1 Time Spent (min) 60
[2023-07-09] MEDS: docusate sodium 100 mg Capsule PO (18:40)
[2023-07-09] MEDS: ibuprofen 800 mg tablet PO (20:27)
[2023-07-10] VITALS (13 sets, daily range): BP systolic 103–136; BP diastolic 65–89; PULSE 49–110; RESP 15–20; TEMP 36.1–36.7; O2SAT 95–99
[2023-07-10 03:32] LABS: Hematocrit 30.7 % (36-47); Mean Corpuscular HGB Conc 32.9 g/dL (30-55); Mean Corpuscular Hemoglobin 31.9 pg (27-33); Mean Corpuscular Volume 96.8 fl (85-98); Mean Platelet Volume 12.7 fL (7.4-10.4); Platelet Count 83 10^3/cmm (157-399); Red Blood Count 3.17 10^6/uL (3.85-5.65); Red Cell Distribution Width 12.3 % (12.1-15.1); White Blood Count 9.63 10^3/uL (3.29-11.43)
[2023-07-10] MEDS: ibuprofen 800 mg tablet PO (08:11)
[2023-07-10] MEDS: docusate sodium 100 mg Capsule PO (08:11)
--- NOTE | 2023-07-10 08:41 | ANE.PACU2 ---
Inpatient post-anesthesia follow up: Airway intact: Yes Vital signs: Temperature 98.9 F Pulse Rate 75 Respiratory Rate 17 Blood Pressure 135/87 Pulse Oximetry 98 Oxygen Delivery Me thod Room Air Oxygen Flow Rate Fraction of Inspir ed Oxygen Hydration adequate: Yes Nausea and vomiting: No Pain level: 1 Mental status: Baseline
--- NOTE | 2023-07-10 12:08 | W.PM.OPSUD ---
Surgery/Procedure H&P Update DATE OF PROCEDURE: July 10, 2023 DATE H&P PERFORMED: 07/09/23 H&P UPDATE INFORMATION: I have reviewed H&P completed within last 30 days, I have examined patient prior to procedure and No changes to prior documentation PREOP DIAGNOSIS: Labor pain PRIMARY INDICATION FOR PROCEDURE: desires permanent sterilization PLANNED PROCEDURE: Operation Date: 07/10/23 12:30 Proposed Procedures p Bilateral Tubal Ligation(Bilateral) - Gilmar Abraham MD
--- NOTE | 2023-07-10 12:18 | PC.NURSE ---
Pt left to OR per wheelchair and preop staff.
[2023-07-10] MEDS: sodium chloride 0.9% 1,000 ML 30 ML IV (12:51)
[2023-07-10] MEDS: ondansetron 2 mg/ML SDV 2 mL 4 MG IVP (12:52)
--- NOTE | 2023-07-10 13:22 | P.ANESUD_ITS ---
Pre-Anesthetic Update Pre-Anesthetic Assessment: Date of Surgery/Procedure: 07/10/23 Preop Yaritza gnosis: Labor pain Proposed Procedure: Operation Date: 07/10/23 12:30 Proposed Procedures p Bilateral Tubal Ligation(Bilateral) - Gilmar Abraham MD Any changes to Pre-Anesthetic Assessment?: No Last Intake: Intake Last Liquid Date 07/09/23 Last Liquid Time 23:45 Last Solid Date 07/09/23 Last Solid Time 20:00 Labs Last 48hrs: Short CBC 07/09/23 07/10/23 Range/Units 02:40 03:20 WBC 10.36 9.63 (3.29-11.43) 10^ 3/uL Hgb 11.90 10.10 L (11.27-16.99) g/ dL Hct 35.2 L 30.7 L (36-47) % MCV 93.6 96.8 (85-98) fl Plt Count 180 83 L D (157-399) 10^3/c mm Neut % (Auto) 84.0 % Neut # (Auto) 8.71 H (1.8-7.7) 10^3/u L Blood Bank 07/09/23 02:40 Blood Type O Positive Rho(D) Type Rh positive Antibody Screen Negative Vitals: Temperature 98.1 F 07/10/23 12:38 Temperature Source Oral 07/09/23 17:00 Pulse Rate 85 07/10/23 12:38 Pulse Rhythm Regular 07/09/23 03:02 Pulse Strength 3+ Normal 07/09/23 03:02 Respiratory Rate 18 07/10/23 12:38 Respiratory Effort Spontaneous, Non- Labored 07/09/23 03:02 Respiratory Depth Normal 07/09/23 03:02 Respiratory Patter n Normal 07/09/23 03:02 Blood Pressure 123/74 07/10/23 12:38 Blood Pressure Helen n 90 07/10/23 12:38 Pulse Oximetry 98 07/10/23 12:38 Oxygen Delivery Me thod Room Air 07/10/23 12:38 Exam: Pre-Anes Outpt Exam: alert, oriented x 3, clear to auscultation bilaterally and regular rate & rhythm Cardiac Studies: No Data to Display
[2023-07-10] MEDS: famotidine 20 mg/2 mL INJ IVP (13:27)
[2023-07-10] MEDS: metoclopramide 5 mg/mL SDV 2 mL 10 MG IVP (13:28)
[2023-07-10] MEDS: citric acid-sodium citrate 30 mL UDC PO (13:28)
[2023-07-10] MEDS: BUPivacaine 0.5% INJ 10 mL INJECTION (14:31)
--- NOTE | 2023-07-10 14:35 | P.OP_ITS ---
Operative Report Date of procedure: July 10, 2023 Pre-op diagnosis: desires permanent sterilization Post-op diagnosis: same Post-op findings: normal fallopian tubes Procedure done: bilateral partial salpingectomy Implants: none Specimens removed/disposition: bilateral fallopian tube segments Surgeon: Gilmar Abraham MD Anesthesia: General Estimated blood loss (mL): 0 Complications: none Condition: stable Disposition: PACU Brief History: 32 y.o. desires permanent sterilization Procedure: Informed consent signed The patient was taken to the operating room and placed supine on the table. General anesthesia was induced. The abdomen was prepped and draped in the usual fashion. A subumbilical skin incision was made and carried through the fasica. The peritoneal cavity was entered. The left fallopian tube was identified to its fimbrial end. The mid-tube region was grasped with a Louisa and an opening was made in the mesosalpinx. The fall opian tube was then ligated proximally and distally with a free tie of 2-O chromic. A 3 cm segment of fallopian tube was excised using Metzenbaum scissors. The proximal and distal ends were cauterized with the bovie. The right fallopian tube was similarly identified to its fimbrial end. An opening was made in the mesaosalpinx and the right fallopian tube was ligated proximally and distally with a tie of 2-O chromic. A 3 cm segment of fallopian tube was excised using Metzenbaum scissors. The proximal and distal ends were cauterized with the bovie. No bleeding was seen. The fascia was then closed with a continuous stitch of O-Vicryl. The subcutaneous tissue was irrigated and inspected for hemostasis. The skin was then reapproximated using Insorb jorden. Postoperative condition stable Disposition to recovery room Estimated blood loss 10 cc, no replacement Sponge, needle, and instrument counts were correct x two There were no complications
--- NOTE | 2023-07-10 15:26 | PC.NURSE ---
1515 PT BACK FROM OR VIA [facility] MOVED FROM THERE TO BED WITH MINIMAL ASSISTANCE. FRESH WATER GIVEN AND ENCOURAGED HER TO GO SLOW ON FOOD AND THIS CREW TRUCK DRIVER ENTERED ROOM WITH FRESH WATER AND SHE WAS EATING A HONEY BUN. THIS CREW TRUCK DRIVER ENCOURAGE HER TO FEED BABY.
--- NOTE | 2023-07-10 20:25 | P.DS_ITS ---
Discharge Providers FORENSIC PSYCHIATRIST Date of Admission: 07/09/23 03:00 Date of Discharge: 07/10/23 Attending Provider at Admission: Gilmar Abraham MD Attending Provider at Discharge: Gilmar Abraham MD Consults: none Primary FORENSIC PSYCHIATRIST: Gilmar Abraham MD Primary Care Provider: FEDERICO Rose Diagnoses at Discharge Discharge Diagnosis (1) Vaginal delivery: Status: Acute (2) Second degree perineal laceration: Details from hospital stay: repaired Status: Acute (3) Encounter for female sterilization procedure: Details from hospital stay: bilateral partial salpingectomy done Status: Acute Reason for Visit Reason for Visit: Contractions Brief History: 32 y.o. at 40 w 4 d, presented with painful uterine contractions Hospital Course Hospital Course patient delivered vaginally had repair of second-degree perineal laceration patient desired permanent sterilization bilateral partial salpingectomy done Information Peripartum Data: Infant Delivery Method: Vaginal Physical Exam Narrative: Comfortable Awake, alert Afebrile, VS normal Lungs: clear Cor: RRR Abd: soft, nontender. fundus firm Subumbilical wound clean and dry Ext: no edema; nontender Urinary Catheter Management: Gunderson: Cath Placed During This Visit: yes, but has since been removed by the nurse Reason for Continuing Indwelling Catheter: Decision to DC Catheter Urinary Catheter Date of Insertion: 07/09/23 Urinary Catheter Time of Insertion: 06:40 Date Urinary Catheter Removed: 07/09/23 Time Urinary Catheter Discontinued: 15:40 History History History 1 Term 0 Miscarriages/Ectopic Living Children Discharge Data Studies Completed and Pending Pending at discharge Category Date Time Status Pathology: Surgical [PTH] Routine Pth 07/10/23 14:31 Ordered Laboratory Results WBC 9.63 10^3/uL (3.29-11.43) 07/10/23 03:20 RBC 3.17 10^6/uL (3.85-5.65) L 07/10/23 03:20 Hgb 10.10 g/dL (11.27-16.99) L 07/10/23 03:20 Hct 30.7 % (36-47) L 07/10/23 03:20 MCV 96.8 fl (85-98) 07/10/23 03:20 MCH 31.9 pg (27-33) 07/10/23 03:20 MCHC 32.9 g/dL (30-55) 07/10/23 03:20 RDW 12.3 % (12.1-15.1) 07/10/23 03:20 Plt Count 83 10^3/cmm (157-399) L D 07/10/23 03:20 MPV 12.7 fL (7.4-10.4) H 07/10/23 03:20 Neut % (Auto) 84.0 % 07/09/23 02:40 Lymph % (Auto) 8.8 % 07/09/23 02:40 Piatt % (Auto) 6.1 % 07/09/23 02:40 Eos % (Auto) 0.1 % 07/09/23 02:40 Baso % (Auto) 0.3 % 07/09/23 02:40 Neut # (Auto) 8.71 10^3/uL (1.8-7.7) H 07/09/23 02:40 Lymph # (Auto) 0.9 10^3/uL (0.8-4.8) 07/09/23 02:40 Piatt # (Auto) 0.6 10^3/uL (0.2-0.9) 07/09/23 02:40 Eos # (Auto) 0.0 10^3/uL (0.0-0.8) 07/09/23 02:40 Baso # (Auto) 0.0 10^3/uL (0.0-0.1) 07/09/23 02:40 Nucleated RBC % (auto) 0 % 07/09/23 02:40 Nucleated RBCs # 0.0 /100WBC 07/09/23 02:40 Urine Opiates Screen Negative ng/mL (Negative) 07/09/23 00:10 Ur Barbiturates Screen Negative ng/mL (Negative) 07/09/23 00:10 Ur Phencyclidine Scrn Negative ng/mL (Negative) 07/09/23 00:10 Ur Amphetamines Screen Negative ng/mL (Negative) 07/09/23 00:10 U Benzodiazepines Scrn Negative ng/mL (Negative) 07/09/23 00:10 Urine Cocaine Screen Negative ng/mL (Negative) 07/09/23 00:10 U Marijuana (THC) Screen Negative ng/mL (Negative) 07/09/23 00:10 Blood Type O Positive 07/09/23 02:40 Rho(D) Type Rh positive 07/09/23 02:40 Antibody Screen Negative 07/09/23 02:40 Procedures Performed vaginal delivery second-degree perineal laceration, repaired bilateral partial salpingectomy Vitals Last Vital Signs Temp 97.7 F 07/10/23 20:12 Pulse 92 07/10/23 20:12 Resp 15 07/10/23 20:12 BP 108/72 07/10/23 20:12 Pulse Ox 98 07/10/23 20:12 O2 Del Method Room Air 07/10/23 15:04 Results Labs OB ([facility]): Obstetrics US 04/30/23 Blood Type O Positive 07/09/23 Antibody Screen Negative 07/09/23 Hct 30.7 % (36-47) L 07/10/23 Hgb 10.10 g/dL (11.27-16.99) L 07/10/23 Rho(D) Type Rh positive 07/09/23 Plt Count 83 10^3/cmm (157-399) L 07/10/23 TSH 2.00 uIU/mL (0.27-4.20) 07/27/21 Cystic Fibrosis Screen Negative 12/19/22 Gest Glucose Tolerance 133 mg/dL (70-139) 04/16/23 Urine Opiates Screen Negative ng/mL (Negative) 07/09/23 Ur Barbiturates Screen Negative ng/mL (Negative) 07/09/23 Ur Phencyclidine Scrn Negative ng/mL (Negative) 07/09/23 Ur Amphetamines Screen Negative ng/mL (Negative) 07/09/23 U Benzodiazepines Scrn Negative ng/mL (Negative) 07/09/23 Urine Cocaine Screen Negative ng/mL (Negative) 07/09/23 U Marijuana (THC) Screen Negative ng/mL (Negative) 07/09/23 Micro Urine Specimen 01/28/22 Pap Smear Interpret See note 05/10/22 Discharge Plan Discharge Patient Disposition: Home Condition: Stable Prescriptions: New Percocet 5-325 mg tablet 1 tab PO BID PRN (Reason: pain) Qty: 14 0RF Continued valacyclovir [Valtrex] 500 mg tablet 500 mg PO BID Qty: 60 12RF prenat.vits,jimbo,nig-wtsq-plaod Tablet 1 tab PO DAILY diphenhydramine HCl 50 mg Capsule 50 mg PO PRN PRN (Reason: Sleep) Discharge Orders: Discharge Order (Routine); Ordered 07/10/23 Ordered By: Gilmar Abraham Referrals: Gilmar Abraham MD [Physician] - 2 weeks (Call the office and make and an appt for 2 weeks for an incision check and your 6 weeks .) Discharge Diet: Usual diet Discharge Activity: Increase activity as tolerated Patient Instructions: Depression (DC), Bleeding (DC), Preeclampsia and Eclampsia After Delivery (GEN), Tubal Ligation (GEN), OB Discharge Report, OB Laproscopic Surgery - [facility], OB Food/Drug Interaction Guide, Opioid Safety, OB Home Care, OB Proud Parent Packet, OB Vaginal Deliveries - [facility], Abnormal Bleeding Discharge Attestations FORENSIC PSYCHIATRIST Time Spent in Discharge Care*: less than 30 min Coding Level of Care Code Acute Code for Chg Fwd Diagnoses Vaginal delivery O80 Second degree perineal laceration O70.1 Encounter for female sterilization procedure Z30.2 Time Spent (min) 25
--- NOTE | 2023-07-10 20:25 | PM.OBGYPN ---
EVENT PLANNING MANAGER Subjective Subjective: Interval history: No c/o Minimal incisional pain Eating, voiding, ambulating well Caring for infant without any difficulties Labor: Station: +2 Amniotic Membrane Status: Ruptured Monitor Mode: Palpation Contraction Pattern: Regular Status: Category II Vitals/I&O/Wt Last Vital Signs Temp 97.7 F 07/10/23 20:12 Pulse 92 07/10/23 20:12 Resp 15 07/10/23 20:12 BP 108/72 07/10/23 20:12 Pulse Ox 98 07/10/23 20:12 O2 Del Method Room Air 07/10/23 15:04 07/10/23 07/10/23 07/11/23 14:59 22:59 06:59 Intake Total 910 / 910 Output Total Balance 909 / 909 Weight last 48 hrs Weight 180 lb Physical Exam Narrative: Comfortable Awake, alert Afebrile, VS normal Lungs: clear Cor: RRR Abd: soft, nontender. fundus firm Subumbilical wound clean and dry Ext: no edema; nontender Urinary Catheter Management: Gunderson: Cath Placed During This Visit: yes, but has since been removed by the nurse Reason for Continuing Indwelling Catheter: Decision to DC Catheter Urinary Catheter Date of Insertion: 07/09/23 Urinary Catheter Time of Insertion: 06:40 Date Urinary Catheter Removed: 07/09/23 Time Urinary Catheter Discontinued: 15:40 Data 07/10/23 03:20 A&P Assessment and plan (1) Vaginal delivery: (2) Second degree perineal laceration: (3) Encounter for female sterilization procedure: PPD #1 POD #0 PPTL doing well discharge home today instructions and precautions given call/return if fever, chills, headache, blurry vision, nausea, vomiting, abdominal pain; vaginal bleeding or discharge; shortness of breath, chest pain, leg pains or swelling; inability to void, perineal pain or swelling; feelings of depression or mood changes; thoughts of suicide or harming others; inability to care for baby. f/u in one week or PRN Attestations Medical Necessity Statement*: patient s/p , PPTL, plan discharge home today Coding Level of Care Code Acute Code for Chg Fwd Diagnoses Vaginal delivery O80 Second degree perineal laceration O70.1 Encounter for female sterilization procedure Z30.2 Time Spent (min) 30
== END 2023-07-10 19:58 | disposition home or self-care (01) | DRG 768 ==
LOC: OPOB 03:00 → OBGYN 03:00
PROVIDERS: Admitting Provider Obstetrics & Gynecology; PCP Nurse Practitioner Family; Visit Provider Obstetrics & Gynecology
PROC: 0UB70ZZ Excision of Bilateral Fallopian Tubes, Open Approach (ICD-10-PCS; CPT 58605; principal; 2023-07-10 12:10)
DX: O48.0 Post-term pregnancy (principal); Z37.0 Single live birth; Z3A.40 40 weeks gestation of pregnancy; O70.1 Second degree perineal laceration during delivery; Z30.2 Encounter for sterilization; O99.334 Smoking (tobacco) complicating childbirth; F17.210 Nicotine dependence, cigarettes, uncomplicated
CPT/HCPCS: 36415; 51702; 58605; 59025; 59409; 80306; 85025; 85027; 86850; 86900; 88302; 96374; 96376; 99211; J0330; J1100; J1200; J1885; J2250; J2371; J2405; J2590; J2704; J2710; J2765; J2795; J3010; J3490; J7030; J7120; J7121

== ENCOUNTER 2023-08-21 13:21 | Outpatient (CLI) | payer MEDICAID, SELFPAY ==
--- NOTE | 2023-08-21 13:25 | XRR_ITS ---
PROCEDURE INFORMATION: Exam: XR Right Hand Exam date and time: 08/21/2023 1:31 PM Age: 33 years old Clinical indication: Pain; Finger(s) and hand; Right; Additional info: M79.644 - pain in right finger(s) TECHNIQUE: Imaging protocol: Radiologic exam of the right hand. Views: 3 or more views. COMPARISON: No relevant prior studies available. FINDINGS: Bones/joints: Alignment is normal. Joint spaces are preserved. Nondisplaced fracture of the 4th distal phalangeal tuft. Soft tissues: Unremarkable. XR/XR hand RT min 3V* [id number] IMPRESSION: Nondisplaced fracture of the 4th distal phalangeal tuft.
== END 2023-08-21 13:22 | disposition home or self-care (01) ==
LOC: RAD 13:22
PROVIDERS: PCP Nurse Practitioner Family; Visit Provider Nurse Practitioner Family
DX: S62.664A Nondisplaced fracture of distal phalanx of right ring finger, initial encounter for closed fracture (principal); X58.XXXA Exposure to other specified factors, initial encounter; M79.644 Pain in right finger(s); G89.29 Other chronic pain
CPT/HCPCS: 73130

== ENCOUNTER → 2023-09-12 10:44 | Outpatient (BNVA) | payer MEDICAID, SELFPAY | PROVIDERS: PCP Nurse Practitioner Family; Referring Provider Nurse Practitioner Family; Visit Provider Nurse Practitioner | DX: M65.311 Trigger thumb, right thumb; G56.01 Carpal tunnel syndrome, right upper limb | CPT/HCPCS: 73130 ==

== ENCOUNTER → 2023-10-23 15:33 | Outpatient (BNVA) | payer MEDICAID, SELFPAY | PROVIDERS: PCP Nurse Practitioner Family; Visit Provider Nurse Practitioner Family | DX: R30.0 Dysuria (principal); D69.6 Thrombocytopenia, unspecified | CPT/HCPCS: 81000 ==

== ENCOUNTER → 2024-03-22 08:05 | Outpatient (BNVA) | payer MEDICAID, SELFPAY | PROVIDERS: PCP Nurse Practitioner Family; Visit Provider Nurse Practitioner | DX: M79.644 Pain in right finger(s) (principal); M65.311 Trigger thumb, right thumb; G89.29 Other chronic pain; G56.01 Carpal tunnel syndrome, right upper limb | CPT/HCPCS: 73130 ==

== ENCOUNTER 2024-04-01 05:51 | Day surgery (SDC) | payer MEDICAID, SELFPAY ==
[2024-04-01] VITALS (10 sets, daily range): BP systolic 102–130; BP diastolic 65–85; PULSE 62–80; RESP 16–18; TEMP 36.2; O2SAT 95–100
[2024-04-01] MEDS: sodium chloride 0.9% 1,000 ML 30 ML IV (06:14)
[2024-04-01] MEDS: acetaminophen 1,000 MG/100 ML PIGGYBACK 400 MG IV (06:19)
[2024-04-01] MEDS: gabapentin 300 mg Capsule PO (06:20)
[2024-04-01] MEDS: CELEcoxib 200 mg Capsule 400 MG PO (06:20)
[2024-04-01 06:25] LABS: OR HCG Qualitative Urine Negative (Negative)
--- NOTE | 2024-04-01 06:42 | ANES.PREANE2 ---
Pre-Anesthetic Assessment Height/Weight: Height 1.47 m Weight 86.183 kg Temp Pulse Resp BP Pulse Ox O2 Del Method 97.1 F L 80 16 125/73 97 Room Air, Nasal Cannula 04/01/24 06:02 04/01/24 06:02 04/01/24 06:02 04/01/24 06:02 04/01/24 06:02 04/01/24 06:02 Operation Date: 04/01/24 07:00 Proposed Procedures p Trigger Finger Release RIGHT THUMB(Right) - Lucie Blackwell MD Familial anesthetic complications: None Was Beta Naz taken within 24 hours: N/A Was Clonidine taken within 24 hours: N/A Last intake: Intake Last Liquid Date 04/01/24 Last Liquid Time 04:00 Last Solid Date 03/31/24 Last Solid Time 20:30 Social No alcohol and No tobacco Exam alert, oriented x 3, clear to auscultation bilaterally and regular rate & rhythm Airway Mallampati: Class I Dentition: false GI Gastroesophageal Reflux Disease Anesthetic Plan ASA status: 2 Anesthesia: General Risk of > 500 ml blood loss (7ml/kg in children): No Medications/Allergies Home Medications Medication Instructions Recorded Confirmed Last Taken Type fluoxetine 10 mg capsule (Prozac) 10 mg PO DAILY 30 days #30 caps 03/18/24 04/01/24 03/31/24 Rx ibuprofen 800 mg tablet 800 mg PO BID 03/22/24 04/01/24 03/30/24 History Allergies Allergy/AdvReac Type Severity Reaction Status Date / Time iodine Allergy Severe ALGY-Anaphy Verified 03/31/24 10:09 laxis shellfish derived Allergy Severe ALGY-Anaphy Verified 03/31/24 10:09 laxis Current Medications Generic Name Dose Route Start Last Admin Trade Name Freq PRN Reason Stop Dose Admin Sodium Chloride 1,000 mls @ 30 mls/hr 04/01/24 06:00 04/01/24 06:14 Sodium Chloride 0.9% IV 04/02/24 05:59 30 mls/hr .Q24H REBA Administration PFSH Anesthesia Medical History ADD (attention deficit disorder) Carpal tunnel syndrome of right wrist Encounter for female sterilization procedure Vaginal delivery Second degree perineal laceration Active labor Term Migraine without aura No pertinent past medical history neghx: htn,dm,thyroid,dvt/pe PCP: Rosangela Anshu Herpes simplex oral only; has acyclovir Anxiety Surgical History Hx of appendectomy History of ankle surgery Family History Father Diabetes Hypertension Mother DJD (degenerative joint disease) Hypertension Grandfather Colon cancer Maternal--dx age 72 Hyperlipidemia Maternal and Paternal Hypertension Maternal and Paternal Grandmother Diabetes Maternal Hyperlipidemia Maternal and Paternal Hypertension Maternal and Paternal Denies family history of Ovarian cancer Breast cancer Uterine cancer Thyroid disease Stroke Social History Smoking and tobacco/nicotine status: never used tobacco/nicotine Substance/Drug Use: never Data Anesthesia Cardiac Studies: No Data to Display
[2024-04-01] MEDS: ceFAZolin 2,000 mg SDV 2000 MG IVP (07:04)
--- NOTE | 2024-04-01 07:04 | W.PM.OPSUD ---
Surgery/Procedure H&P Update DATE OF PROCEDURE: April 01, 2024 DATE H&P PERFORMED: 03/22/24 H&P UPDATE INFORMATION: I have reviewed H&P completed within last 30 days, I have examined patient prior to procedure, No changes to prior documentation and H&P is in [facility] [place] on date indicated PLANNED PROCEDURE: Operation Date: 04/01/24 07:00 Proposed Procedures p Trigger Finger Release RIGHT THUMB(Right) - Lucie Blackwell MD Related Problem List Diagnoses (1) Trigger thumb of right hand:
[2024-04-01] MEDS: BUPivacaine 0.5% INJ 30 mL XX (07:35)
--- NOTE | 2024-04-01 08:04 | P.OP_ITS ---
Operative Report Date of procedure: April 01, 2024 Pre-op diagnosis: Right trigger thumb Post-op diagnosis: Right trigger thumb Post-op findings: Significant synovitis Procedure done: Right trigger thumb release Implants: None Pathology: None Surgeon: Lucie Blackwell MD Insurance Verification Specialist: None Anesthesia: General (Per LMA, ASA 2) Estimated blood loss (mL): 2 Tourniquet time (min): 9 (At 250 mmHg) IV fluids (mL): 800 Urine output (mL): 0 Complications: No Gunderson Findings: None Condition: stable Disposition: PACU (Then return to same-day surgery for discharge to home) Brief History: This 33-year-old female presented initially to clinic for symptoms consistent with trigger thumb. She had injections to these which relieved her symptoms, but then it returned. She noted the symptoms were gradually worsening and after discussion, she wished to proceed with trigger thumb release. Risks and complications were discussed with her. Consents were signed and questions were answered. Procedure: Patient was brought to the operating theater. She was placed on the operating room table. Patient was administered a general anesthetic per LMA, ASA 2. Patient tolerated it well. 2 g of Ancef was given prophylactically. A tourniquet was placed high on the arm and was was elevated after exsanguination. Tourniquet time was 9 minutes. Surgical pause was performed prior to comme ncement of the surgical procedure. At the time of the surgical pause we identified the site and side of surgery. We also identified the patient's identity and appropriate administration of IV antibiotics. Following the surgical pause, an incision was made proximally along the metacarpal phalangeal crease of the thumb. Dissection continued through the skin to the subcutaneous tissues using a scalpel. Blunt dissection was then utilized to spread soft tissues and allow access to the A1 yovani. It was then incised longitudinally and sharply using a knife. This was accomplished without difficulty and atraumatically. Once the A1 yovani was released, the tendon was brought up out of the wound and evaluated. There were no gross masses on the tendon. Tendon was returned to normal position. We then irrigated the wound and subsequently closed it with 3-0 nylon with an interrupted mattress type suture. The wound was injected with bupivacaine into the subcutaneous tissues as a local anesthetic. Sterile dressing was then placed consisting of OpSite,, fluffed fluffs, sterile soft roll, and an Marin wrap. The patient was returned to recovery in satisfactory condition. She will be discharged home to follow-up with me in the office. There were no complications and no specimens. Related Problem List Diagnoses (1) Trigger thumb of right hand:
[2024-04-01] MEDS: HYDROcodone-acetaminophen 5-325 mg Tablet 1 TAB PO (08:53)
--- NOTE | 2024-04-01 09:10 | ANE.PACU2 ---
Inpatient post-anesthesia follow up: Airway intact: Yes Vital signs: Temperature 97.2 F Pulse Rate 70 Respiratory Rate 16 Blood Pressure 108/78 Pulse Oximetry 99 Oxygen Delivery Me thod Room Air Oxygen Flow Rate 8 Fraction of Inspir ed Oxygen Hydration adequate: Yes Nausea and vomiting: No Pain level: 1 Mental status: Baseline
== END 2024-04-01 09:10 | disposition home or self-care (01) ==
PROVIDERS: Anesthesiology; PCP Registered Nurse; Visit Provider Specialist
PROC: (CPT 26055; principal; 2024-04-01 07:00)
DX: M65.311 Trigger thumb, right thumb (principal); K21.9 Gastro-esophageal reflux disease without esophagitis
CPT/HCPCS: 26055; 81025; J0131; J0690; J2405; J2704; J3010; J3490; J7030

== ENCOUNTER → 2024-07-06 11:20 | Outpatient (BNVA) | payer MEDICAID, SELFPAY | PROVIDERS: PCP Registered Nurse; Visit Provider Registered Nurse | DX: N39.0 Urinary tract infection, site not specified (principal) | CPT/HCPCS: 81000 ==

== ENCOUNTER → 2025-01-24 10:32 | Outpatient (BNVA) | payer MEDICAID, SELFPAY | PROVIDERS: PCP Registered Nurse; Visit Provider Registered Nurse | DX: R30.0 Dysuria (principal) | CPT/HCPCS: 81000; 87077; 87086; 87184 ==

== ENCOUNTER → 2025-02-01 13:29 | Outpatient (BNVA) | payer MEDICAID, SELFPAY | PROVIDERS: PCP Registered Nurse; Visit Provider Registered Nurse | DX: N39.0 Urinary tract infection, site not specified (principal) | CPT/HCPCS: 81000; 87086 ==

== ENCOUNTER → 2025-03-04 11:11 | Outpatient (BNVA) | payer MEDICAID, SELFPAY | PROVIDERS: PCP Registered Nurse; Visit Provider Registered Nurse | DX: Z13.6 Encounter for screening for cardiovascular disorders (principal); Z13.1 Encounter for screening for diabetes mellitus; I10 Essential (primary) hypertension | CPT/HCPCS: 80053; 80061; 83036; 85025 ==

== ENCOUNTER 2025-07-25 08:20 | Outpatient (CLI) | payer MEDICAID, SELFPAY ==
--- NOTE | 2025-07-25 08:28 | US_ITS ---
WS: [id number] Exam: US breast RT limited* [id number] Date/Time of Exam: 07/25/2025 9:18 AM Reason For Exam: R BREAST LUMP/DENSE L BREAST Regional ultrasound of the RIGHT breast at the 9 o'clock position is performed. A subcutaneous cyst is identified that measures 0.4 x 0.4 x 0.3 cm. This corresponds to the patient directed palpable nodule. There were no suspicious solid masses or nodules in this region. US/US breast RT limited* [id number] IMPRESSION: 1. Subcentimeter subcutaneous cyst at the 9:00 anterior position in the RIGHT b reast. This corresponds to the patient directed palpable nodule. BI-RADS Catego ry 2. Recommendation: Begin screening mammography at age 40.
--- NOTE | 2025-07-25 08:30 | MM_ITS ---
WS: [id number] VIEWS: MLO, CC, and ML views both breasts. 3D digital tomosynthesis is also included in this exam. Additionally compression spot views with tomography of the RIGHT breast in the CC and MLO positions No comparisons available. Findings: The breasts are heterogeneously dense, which may obscure small masses. A 7 mm nodular density is noted in the RIGHT breast at about 9 o'clock position at anterior depth. This is area has a corresponding skin marker nearby and apparently represents a patient directed palpable nodule. The nodule is smooth in contour. No suspicious calcification or architectural distortion identified. The remaining aspects of both breasts are otherwise unremarkable. A regional ultrasound of the anterior RIGHT breast at the 9 o'clock position is recommended for further work-up. MM/MM diag BI tomosynthesis [id number] IMPRESSION: 1. 7 mm smoothly marginated nodule in the RIGHT breast at the 9 o'clock positio n at anterior depth. This corresponds to the clinically palpable nodule. BI-RAD S Category 0. Recommend regional ultrasound. Impression: BI-RADS: 0 - Incomplete: Need additional imaging evaluation FOLLOW-UP: See Report This mammogram was also analyzed by the Computer Aided Detection System R2 Imag e Magnetic Testing Technician.
== END 2025-07-25 08:21 | disposition home or self-care (01) ==
PROVIDERS: PCP Registered Nurse; Visit Provider Registered Nurse
DX: N63.21 Unspecified lump in the left breast, upper outer quadrant (principal); R92.8 Other abnormal and inconclusive findings on diagnostic imaging of breast
CPT/HCPCS: 76642; 77062; G0279